=== PATIENT | male | born 1945 | race Caucasian/White ===

== ENCOUNTER 2017-12-27 14:45 | Inpatient (IN) | END 2017-12-30 17:40 | disposition home health service (06) | DRG 872 ==

== ENCOUNTER 2018-10-21 08:46 | Inpatient (IN) | payer OTHER ==
[~2018-10-21] VITALS: Ht 167.6 cm; Wt 86.9 kg
[~2018-10-21 08:46] MED LIST: AMLO5TAB4 PO; BACTRIM PO; EMPA25TA PO; PIOG15TA12 PO; RSV10T PO; SITA1TAB5 PO; TAMS-14 PO
[2018-10-21] MEDS ORDERED: SODIUM CHLORIDE 0.9% 1L BAG IV* STA (08:47)
[2018-10-21] MEDS ORDERED: KETOROLAC 15 MG INJ IV STA (08:47)
[2018-10-21] MEDS ORDERED: ACETAMINOPHEN 325 MG TAB PO ONE (09:00)
[2018-10-21] MEDS ORDERED: SITA1TAB5 PO (10:00)
[2018-10-21] MEDS ORDERED: FLUT16SP17 NASAL (10:01)
[2018-10-21] MEDS ORDERED: GABA300C16 PO ×2 (10:01)
[2018-10-21] MEDS ORDERED: AMLO5TAB4 PO (10:01)
[2018-10-21] MEDS ORDERED: COMBIG5 BOTH EYES (10:02)
[2018-10-21] MEDS ORDERED: RSV10T PO (10:02)
[2018-10-21] MEDS ORDERED: TAMS-14 PO (10:03)
[2018-10-21] MEDS ORDERED: OLOP2.5D BOTH EYES (10:03)
[2018-10-21] MEDS ORDERED: LOSA50TA14 PO (10:03)
[2018-10-21] MEDS ORDERED: PIOG15TA12 PO (10:04)
--- NOTE | 2018-10-21 10:10 | ERD ---
ER Documentation Chief Complaint Chief Complaint FEVER AND DYSURIA SINCE THIS MORNING HPI This is a 73-year-old male with a past medical history of hypertension, hyperlipidemia, diabetes, BPH, chronic kidney disease, previous episode of sepsis related to UTI last year who is presenting with similar complaints as last year. The patient's caregiver reports that he has been weaker than usual over the last 1 to 2 days. The patient also endorses suprapubic pain with dysuria, urgency and frequency. The patient is usually ambulatory, but he felt too weak to get up today, which is what prompted the caregiver to call an ambulance. The patient is felt unwell and has had a fever. The patient does not endorse any alleviating or exacerbating factors. He denies nausea or vomiting. He denies constipation or diarrhea. He denies black or bloody or tarry stools. The patient has had no headache or vision changes. The patient does not endorse neck or back pain. The patient denies lightheadedness or dizziness. The patient has had no chest pain or trouble breathing. The patient has had no focal deficits. The patient has had no weakness or numbness or tingling to the face or extremities. ROS All systems reviewed and are negative except as per history of present illness. Medications Home Meds Reported Medications Pioglitazone Hcl* (Actos*) 15 Mg Tablet, 15 MG PO DAILY, #30 TAB 10/21/18 Losartan Potassium* (Losartan Potassium*) 50 Mg Tablet, 50 MG PO DAILY, TAB 10/21/18 Tamsulosin Hcl* (Flomax*) 0.4 Mg Cap.er.24h, 0.4 MG PO DAILY, CAP 10/21/18 Olopatadine* (Pataday*) 0.2% - 2.5 Ml Drops, 1 DROP BOTH EYES DAILY, EA 10/21/18 Brimonidine/Timolol* (Combigan*) 5 Ml Drops, 1 DROP BOTH EYES BID, BOTTLE 10/21/18 Rosuvastatin Calcium* (Crestor*) 10 Mg Tablet, 10 MG PO QHS, #30 TAB 10/21/18 Fluticasone Propionate* (Fluticasone Propionate* Nasal) 50 Mcg/[place] - 16 Gm [place].susp, 1 SPRAY NASAL DAILY, #1 BOTTLE TO EACH NOSTRIL 10/21/18 Amlodipine Besylate* (Norvasc*) 5 Mg Tablet, 5 MG PO QHS, TAB 10/21/18 Gabapentin* (Gabapentin*) 300 Mg Capsule, 600 MG PO QHS, #180 CAP 10/21/18 Gabapentin* (Gabapentin*) 300 Mg Capsule, 300 MG PO QAM, #60 CAP 10/21/18 Sitagliptin Phos/Metformin HCl (Janumet 50-1,000 mg Tablet) 1 Each Tablet, 1 EACH PO BID, TAB 10/21/18 Discontinued Reported Medications Pioglitazone Hcl* (Actos*) 15 Mg Tablet, 15 MG PO DAILY, #30 TAB 12/27/17 Empagliflozin (Jardiance) 25 Mg Tablet, 25 MG PO WITH MEALS, TAB 12/27/17 Amlodipine Besylate* (Norvasc*) 5 Mg Tablet, 5 MG PO DAILY, TAB 12/27/17 Sitagliptin Phos/Metformin HCl (Janumet 50-1,000 mg Tablet) 1 Each Tablet, 2 EACH PO WITH DINNER, TAB 12/27/17 Rosuvastatin Calcium* (Crestor*) 10 Mg Tablet, 10 MG PO QHS, #30 TAB 12/27/17 Discontinued Scripts Tamsulosin Hcl* (Flomax*) 0.4 Mg Cap.er.24h, 0.8 MG PO HS for 30 Days, #60 CAP Prov:BRITTANI BELL MD 12/30/17 Trimethoprim-Sulfamethoxazole* (Bactrim*) 400-80 Mg Tab, 1 TAB PO BID for 10 Days, #20 TAB Prov:BRITTANI BELL MD 12/30/17 Allergies Allergies: Coded Allergies: No Known Allergy (Unverified , 10/21/18) PMhx/Soc History of Surgery: Yes (Right foot surgery) Anesthesia Reaction: No Hx Neurological Disorder: No Hx Respiratory Disorders: No Hx Cardiac Disorders: Yes (Hypertension, hyperlipidemia, diabetes) Hx Psychiatric Problems: No Hx Miscellaneous Medical Probl: Yes (Chronic kidney disease, BPH, recurrent UTI) Hx Alcohol Use: No Hx Substance Use: No Hx Tobacco Use: No Smoking Status: Former smoker FmHx Family History: diabetes Physical Exam Vitals Vital Signs Date Temp Pulse Resp B/P (MAP) Pulse Ox O2 O2 Flow FiO2 Time Delivery Rate 10/21/18 85 16 102/49 98 Room Air 10:30 (66) 10/21/18 100.2 93 20 125/60 96 08:52 (81) Physical Exam Const: No apparent distress, well-developed, well-nourished Head: Normocephalic, Atraumatic Eyes: Normal Conjunctiva. Extraocular movements intact. Pupils equal, round and reactive to light ENT: Normal External Ears, Nose and Mouth. Neck: Full range of motion. No meningismus. Resp: Clear to auscultation bilaterally, No wheezes, rales or rhonchi Cardio: Regular rate and rhythm. No murmurs, rubs or gallops Abd: Soft, non distended. Suprapubic abdominal tenderness, mild. No rebound or guarding. Normal bowel sounds : Mild testicular tenderness. Skin: No petechiae or rashes Back: No midline tenderness. No CVA tenderness Ext: No cyanosis, or edema Neur: Awake and alert, oriented 4. Cranial nerves intact. No facial droop. Normal strength, sensation and coordination. Psych: Normal Mood and Affect Result Diagram: 10/21/18 0900 10/21/18 09 Results 24 hrs Laboratory Tests Test 10/21/18 09:00 10/21/18 09:05 10/21/18 09:10 10/21/18 11:20 White Blood Count 26.3 10^3/ul Red Blood Count 3.74 10^6/ul Hemoglobin 10.6 g/dl Hematocrit 33.6 % Mean Corpuscular 89.8 fl Volume Mean Corpuscular 28.3 pg Hemoglobin Mean Corpuscular 31.5 g/dl Hemoglobin Concent Red Cell 13.3 % Distribution Width Platelet Count 238 10^3/UL Mean Platelet 11.6 fl Volume Immature 5.200 % Granulocytes % Neutrophils % % Segmented 73 % Neutrophils % (Manual) Band Neutrophils % 15 % (Manual) Lymphocytes % % Lymphocytes % 4 % (Manual) Monocytes % % Monocytes % 8 % (Manual) Eosinophils % % Basophils % % Nucleated Red Blood 0.0 /100WBC Cells % Immature 1.360 10^3/ul Granulocytes # Neutrophils # 10^3/ul Neutrophils # 20.2 10^3/ul (Manual) Band Neutrophils # 3.9 10^3/ul Lymphocytes 1.0 10^3/ul (Manual) Lymphocytes # 10^3/ul Monocytes # 10^3/ul Monocytes # 2.1 10^3/ul (Manual) Eosinophils # 10^3/ul Basophils # 10^3/ul Nucleated Red Blood 10^3/ul Cells # Platelet Estimate NORMAL Giant Platelets 1 % Polychromasia 1+ Poikilocytosis 2+ Anisocytosis 1+ Macrocytosis 1+ Ovalocytes 1+ Prothrombin Time 14.8 Sec Prothrombin Time 1.2 Ratio INR International 1.15 Normalized Ratio Activated 39.7 Sec Partial Thromboplas t Time Sodium Level 141 mmol/L Potassium Level 4.4 mmol/L Chloride Level 102 mmol/L Carbon Dioxide 19 mmol/L Level Anion Gap 20 Blood Urea Nitrogen 31 mg/dl Creatinine 2.50 mg/dl Est Glomerular mL/min Filtrat Rate mL/min Glucose Level 221 mg/dl Calcium Level 10.4 mg/dl Total Bilirubin 0.5 mg/dl Direct Bilirubin 0.00 mg/dl Indirect Bilirubin 0.5 mg/dl Aspartate Amino 26 IU/L Transf (AST/SGOT) Alanine 8 IU/L Aminotransferase (A LT/SGPT) Alkaline 61 IU/L Phosphatase Troponin I < 0.012 ng/ml Total Protein 8.1 g/dl Albumin 4.6 g/dl Globulin 3.50 g/dl Albumin/Globulin 1.31 Ratio POC Venous Lactate 1.9 mmol/L 1.2 mmol/L Urine Color YELLOW Urine Clarity CLOUDY Urine pH 5.0 Urine Specific 1.014 [place] Urine Ketones 1+ mg/dL Urine Nitrite NEGATIVE mg/dL Urine Bilirubin NEGATIVE mg/dL Urine Urobilinogen NEGATIVE mg/dL Urine Leukocyte 3+ Hal/ul Esterase Urine Microscopic 10 /HPF RBC Urine Microscopic > 182 /HPF WBC Urine Hemoglobin 2+ mg/dL Urine Glucose 3+ mg/dL Urine Total Protein 2+ mg/dl Current Medications Medications Dose Sig/Naima Start Time Status Last (Trade) Ordered Route PRN Stop Time Admin Dose Reason Admin Sodium 2,640 ml BOLUS OVER 2 10/21/18 DC 10/21/18 Chloride HOURS STAT 08:47 10/21/18 09:20 (NS) IV* 08:51 650 mg ONCE ONCE 10/21/18 DC 10/21/18 Acetaminophen PO 09:00 10/21/18 09:20 (Tylenol 09:01 Tab) Ketorolac 15 mg ONCE STAT 10/21/18 DC 10/21/18 Tromethamine IV 08:47 10/21/18 09:20 (Toradol) 08:51 150 ml @ ONCE ONCE 10/21/18 10/21/18 Levofloxacin/ 100 mls/hr IVPB 11:00 10/21/18 11:04 Dextrose 12:29 Procedures/MDM MDM The patient's presentation warrants further investigation. Previous medical records, if available, were reviewed. LABS The patient's laboratory testing was obtained and reviewed. No emergent treatment was required unless described below. CBC: Significant leukocytosis, concerning for an infection. Normocytic anemia, not emergent. Normal platelet count. Chemistry: Elevated BUN and creatinine above his baseline, indicating acute on chronic kidney disease. Mild hyperglycemia with a mild anion gap metabolic acidosis, though low clinical suspicion for DKA. No E/o severe alkalosis or liver disease. PT/INR: No E/o significant coagulopathy Lactate: No E/o severe sepsis Troponin: No E/o acute ischemia Urine: E/o acute infection with hematuria EKG EKG read by me: Rate/Rhythm: Regular rate and rhythm at a rate of 95 bpm Intervals: Normal [place]: Left shifted Impression: No evidence of acute ischemia or arrhythmia IMAGING Imaging and Radiology interpretation reviewed. CXR FINDINGS: The trachea is midline. The cardiac silhouette is enlarged and pulmonary vascularity are within normal limits. The lungs are clear. There are bilateral chronic lung changes. The costophrenic angles are sharp. There is atherosclerotic calcification of the aortic knob. IMPRESSION: 1. Cardiomegaly and atherosclerotic disease. 2. Bilateral chronic lung changes. No evidence of acute cardiopulmonary disease. Electronically viewed and signed by Physician Stef on 10/21/2018 10:05 US Scrotum FINDINGS: Bilateral testicular echogenicity is symmetric. Right testis measures 3.5 x 2.8 x 2.7 cm. Left testis measures 3.8 x 3.3 x 3.8 cm. Normal vascular sravani w was readily detected within both testes. Normal vascular waveforms were sampled from both testes. Bilateral epididymides are enlarged and hyperemic. There is a 1 cm left epididymal head cyst. There are small bilateral hydroceles with internal echoes on the left No varicocele is seen. IMPRESSION: 1. Bilateral epididymitis. Consider follow-up sonogram to document resolution. 2. Unremarkable testes. 3. Left epididymal head cyst. 4. Small bilateral hydroceles, containing debris on the left. Electronically viewed and signed by Physician Edenilson on 10/21/2018 11:06 TREATMENT/DISPOSITION The patient presents for a fever, generalized weakness and dysuria. The patient has a leukocytosis and is febrile, meeting criteria for systemic inflammatory response with a source. I am concerned about sepsis and a septic work-up was completed. The patient's lactic acid is normal, but his creatinine is elevated today. The patient does have a history of chronic kidney disease, but his b aseline is typically less than 2. His creatinine is greater than 2 today. He does meet criteria for severe sepsis. The patient does also have evidence of epididymitis. This may be evaluated further in the hospital was well. SEPSIS NOTE SIRS Criteria: Fever, leukocytosis Infectious source: UTI End organ damage indicated by: Creatinine greater than 2 SEPSIS MANAGEMENT Time to recognize sepsis: Upon arrival. Time to recognize severe sepsis: 0915 Time to recognize septic shock: No septic shock at this time. 3 HOUR BUNDLE Blood cultures x 2 before abx: Yes 30 ml/kg NS bolus completed Initial lactate 1.9 Repeat lactate Pending SEPTIC SHOCK ASSESSMENT: NO lactic acid > 4.0 NO persistent hypotension (SBP < 90 or 40 mmHg drop, MAP < 65) despite 30 L/kg IV fluid bolus CRITICAL CARE NOTE Time: 35 minutes excluding all billable procedures. Treatments/Evaluations: The patient was at risk of hemodynamic compromise. Timing of critical care involved close serial monitoring, evaluation of the patient's medical record including previous records & current laboratory/imaging studies, potential interventions for prevention of hemodynamic/ cardiopulmonary/ neurologic compromise, maintaining tight fluid balance, and any discussions with the family and/or consultants regarding the patient's status and prognosis. ADMISSION The patient will be admitted to panel in accordance with the patient's insurance. The patient was accepted by Dr. Paniagua at 11:18AM. Disclaimer: Inadvertent spelling and grammatical errors are likely due to EHR/dictation software use and do not reflect on the overall quality of patient care. Note that the electronic time recorded on this note does not necessarily reflect the actual time of the patient encounter. Departure Diagnosis: Primary Impression: Severe sepsis Additional Impressions: UTI (urinary tract infection) Urinary tract infection type: acute cystitis Hematuria presence: without hematuria Qualified Codes: N30.00 - Acute cystitis without hematuria Generalized weakness Leukocytosis Leukocytosis type: unspecified Qualified Codes: D72.829 - Elevated white blood cell count, unspecified Fever Fever type: unspecified Qualified Codes: R50.9 - Fever, unspecified Czdwz-if-birpvek kidney injury Acute renal failure type: unspecified Chronic kidney disease stage: unspecified stage Qualified Codes: N17.9 - Acute kidney failure, unspecified; N18.9 - Chronic kidney disease, unspecified High anion gap metabolic acidosis Hyperglycemia Epididymitis Normocytic anemia Condition: Serious EDGAR GUZMAN MD October 21, 2018 10:09
[2018-10-21] MEDS ORDERED: LEVOFLOXACIN 750MG/D5W (PMX) 150 ML IVPB ONE (11:00)
[2018-10-21] MEDS ORDERED: ACETAMINOPHEN 325 MG TAB PO PRN ×2 (12:00→15:00)
[2018-10-21] MEDS ORDERED: ONDANSETRON 4 MG INJ IV PRN (12:00)
[2018-10-21 13:52] VITALS: Ht 167.6 cm; Wt 86.9 kg
[2018-10-21 14:00] VITALS: BP 156/70; PULSE 82; RESP 18
[2018-10-21] MEDS ORDERED: HYDROCODONE/APAP (5/325) TAB PO PRN (15:00)
[2018-10-21] MEDS ORDERED: NACL 0.9% 3 ML SYG IV SCH (15:00)
--- NOTE | 2018-10-21 15:08 | HP ---
Date/Time of Note Date/Time of Note DATE: 10/21/18 TIME: 14:45 Assessment/Plan VTE Prophylaxis Pharmacological prophylaxis: NA/contraindicated Pharm contraindication: low risk/ambulating Lines/Catheters IV Catheter Type (from Nrsg): Saline Lock Assessment/Plan Assessment/Plan 73 yo man history of DM2, HTN, BPH, CKD presents with epidydimitis and (likely chronic) hydrocele. #Epidydimitis - PO levofloxacin - Pain control with tylenol and norco. - Continue ambulation. - Outpatient followup with Dr. Wilkinson. #Diabetes - Continue home meds #HTN - Continue home meds. #CKD - Cr 12/2017 was 1.65. - Hydration, reassess in AM to ensure downtrending. - No urinary obstructive symptoms. DVT: SCDs GI: None Result Diagram: 10/21/18 0900 10/21/18 0900 HPI/ROS Admit Date/Time Admit Date/Time October 21, 2018 at 11:32 Hx of Present Illness Mr. Joy is man with history of HTN, HLD, DM2, BPH, and CKD who presents with testicular pain. Symptoms have been gradually progressive for about two weeks. Reports testicular pain, aching, positional, worse when sitting on them or applying any pressure. He denies dysuria, foul smelling urine, subjective fever or chills at home. He had an appointment with his urologist, Dr. Wilkinson at [facility] yesterday; but his line worker could not bring him to the appointment. He lives at home with a line worker, has a hospital bed (?), and ambulates with a walker. The morning of admission he woke up and tried to stand but doing so caused severe testicular pain. So he had his line worker call him an ambulance to the ED. In the ED he had elevated temp to 100.2. Otherwise vitals unremarkable. WBC elevated to 26.3 and Cr was 2.5 with very fluctuating baseline. Otherwise labs unremarkable. Testicular US shows bilateral hydrocele and bilateral epididymitis. ROS Patient denies subjective fever, chills, night sweats, weight loss, headache, dizziness, chest pain/pressure/palpitations, dyspnea, cough, nausea, vomiting, abdominal pain, constipation. Had diarrhea yesterday, now resolved. Denies dysuria, hematuria, foul-smelling urine, urinary frequency. PMH/Family/Social Past Medical History HTN DM2 HLD BPH CKD Medications Current Medications Ondansetron HCl (Zofran Inj) 4 mg BRIDGE ORDER PRN IV NAUSEA/VOMITING; Start 10/21/18 at 12:00; Stop 10/22/18 at 11:59 Acetaminophen (Tylenol Tab) 650 mg ER BRIDGE PRN PO .MILD PAIN 1-3 OR TEMP; Start 10/21/18 at 12:00; Stop 10/22/18 at 11:59 IV Flush (NS 3 ml) 3 ml PER PROTOCOL IV ; Start 10/21/18 at 15:00; Status UNV Acetaminophen (Tylenol Tab) 650 mg Q6H PRN PO .PAIN 1-3 OR TEMP; Start 10/21/18 at 15:00; Status UNV Levofloxacin (Levaquin) 500 mg DAILY@06 PO ; Start 10/22/18 at 06:00; Status UNV Coded Allergies: No Known Allergy (Unverified , 10/21/18) Past Surgical History L foot bunion surgery. R foot surgery prostate surgery 2 months ago. Social History Lives at home with line worker, ambulates with walker. Alcohol Use: sober (quit July 2017) Smoking Status: Former smoker (quit 12 yrs ago) Drug Use: none Exam/Review of Systems Vital Signs Vitals Vital Signs Date Temp Pulse Resp B/P (MAP) Pulse Ox O2 O2 Flow FiO2 Time Delivery Rate 10/21/18 77 18 131/63 97 Room Air 12:35 (85) 10/21/18 99.0 11:30 Exam Exam Gen: Well appearing overweight man in no acute distress, supine in bed. Eyes: PERRL no icterus HEENT: Moist mucous membranes, clear oropharynx Neck: Very wide circumference. No lymphadenopathy Card: Regular rate and rhythm, no murmurs Pulm: Clear to auscultation bilaterally Abd: Soft, nontender, nondistended. Ext: No cyanosis/clubbing/edema. Good peripheral pulses. : L testicle enlarged, very tender, swollen palpable epididymis. R testicle normal sized, not very tender. No scrotal induration or redness. Normal uncircumcised phallus. MOO FORTE MD October 21, 2018 14:56
[2018-10-21] MEDS: ACCU-CHEK XX SCH ×2 (17:23→20:30)
[2018-10-21 20:00] VITALS: BP 144/70; PULSE 78; RESP 19
[2018-10-21] MEDS: GABAPENTIN 300 MG CAP PO SCH (20:26)
[2018-10-21] MEDS: ATORVASTATIN 40 MG TAB PO SCH (20:26)
[2018-10-21] MEDS: BRIMONIDINE 0.2%-TIMOLOL 0.5% 5ML OPH BOTH EYES SCH (20:27)
[2018-10-21] MEDS: AMLODIPINE 5 MG TAB PO SCH (20:27)
[2018-10-21] MEDS ORDERED: NON-FORMULARY/PATIENT OWN MED (Sitagliptin Phos/Metformin HCl (Janumet 50-1,000 mg Tablet) PO SCH (21:00)
[2018-10-21] MEDS ORDERED: NON-FORMULARY/PATIENT OWN MED (Rosuvastatin Calcium* (Crestor*) 10 MG) PO SCH (21:00)
[2018-10-21] MEDS ORDERED: ACCU-CHEK XX ONE (21:30)
[2018-10-21] MEDS ORDERED: GLUCOSE GEL 15 GRAM TUBE BUCCAL PRN (22:00)
[2018-10-21] MEDS ORDERED: DEXTROSE 50% 50 ML SYRINGE IV PRN ×2 (22:00)
[2018-10-21] MEDS ORDERED: GLUCAGON 1 MG INJ IM PRN (22:00)
[2018-10-21] MEDS ORDERED: GLUCOSE GEL 15 GRAM TUBE PO PRN ×2 (22:00)
[2018-10-21] MEDS ORDERED: INSULIN ASPART [NOVOLOG] 3 ML PEN SC ONE (22:30)
[2018-10-22 02:00] VITALS: BP 127/60; PULSE 63; RESP 19
[2018-10-22 08:00] VITALS: BP 130/59; PULSE 72; RESP 18
[2018-10-22] MEDS: ACCU-CHEK XX SCH ×4 (08:30→20:53)
[2018-10-22] MEDS: TAMSULOSIN (SR) 0.4 MG CAP PO SCH (08:40)
[2018-10-22] MEDS: LOSARTAN 50 MG TAB PO SCH (08:41)
[2018-10-22] MEDS: OLOPATADINE 0.2% (ONCE A DAY) OPHTH DROP 2.5 ML BOTH EYES SCH (08:41)
[2018-10-22] MEDS: BRIMONIDINE 0.2%-TIMOLOL 0.5% 5ML OPH BOTH EYES SCH ×2 (08:41→20:45)
[2018-10-22] MEDS: GABAPENTIN 300 MG CAP PO SCH ×2 (08:41→20:46)
[2018-10-22] MEDS: FLUTICASONE 0.05% 16 GM NAS SPRAY NASAL SCH (08:42)
[2018-10-22] MEDS: INSULIN ASPART [NOVOLOG] 3 ML PEN SC SCH ×6 (08:48→20:52)
[2018-10-22] MEDS: PIOGLITAZONE 15 MG TAB PO SCH (09:45)
--- NOTE | 2018-10-22 14:22 | PN ---
Date/Time of Note Date/Time of Note DATE: 10/22/18 TIME: 14:20 Assessment/Plan VTE Prophylaxis Risk score (from Nsg)>0 risk: 6 SCD applied (from Nsg): Yes Pharmacological prophylaxis: NA/contraindicated Pharm contraindication: low risk/ambulating Lines/Catheters IV Catheter Type (from Nrsg): Saline Lock Assessment/Plan Assessment/Plan 73 yo man history of DM2, HTN, BPH, CKD presents with epidydimitis and (likely chronic) hydrocele. #Epidydimitis - PO levofloxacin - Pain control with tylenol and norco. - Continue ambulation. - Outpatient followup with urologist Dr. Wilkinson. #Diabetes - Continue home meds #HTN - Continue home meds. #CKD - Cr 12/2017 was 1.65. - Cr now downtrending after hydration. - No urinary obstructive symptoms. DVT: SCDs GI: None Dispo: Patient appears medically stable for discharge on levofloxacin. However he refused, saying his charge account identification clerk cannot pick him up until tomorrow. Will watch WBCs and see culture results. Result Diagram: 10/22/18 0545 10/22/18 0545 Subjective 24 Hr Interval Summary Free Text/Dictation No acute overnight events. Pain now well controlled. Patient is up and ambulatory. Good appetite. Overall feeling much better. Exam/Review of Systems Exam Vitals Vital Signs Date Temp Pulse Resp B/P (MAP) Pulse Ox O2 O2 Flow FiO2 Time Delivery Rate 10/22/18 98.2 72 18 130/59 98 Room Air 08:00 (82) Intake and Output 10/21/18 10/21/18 10/22/18 1515:00 23:00 07:00 IntakeIntake Total 2640 ml 520 ml 600 ml OutputOutput Total 300 ml BalanceBalance 2640 ml 520 ml 300 ml Exam Gen: Well appearing overweight man in no acute distress, supine in bed. Eyes: PERRL no icterus HEENT: Moist mucous membranes, clear oropharynx Neck: Very wide circumference. No lymphadenopathy Card: Regular rate and rhythm, no murmurs Pulm: Clear to auscultation bilaterally Abd: Soft, nontender, nondistended. Ext: No cyanosis/clubbing/edema. Good peripheral pulses. : L testicle enlarged, very tender, swollen palpable epididymis. R testicle normal sized, not very tender. L sided scrotal redness and induration. Normal uncircumcised phallus. Results Results 24hrs Laboratory Tests Test 10/21/18 17:01 10/21/18 20:33 10/21/18 22:05 10/22/18 00:25 Bedside Glucose 294 H 326 H 267 H 264 H Test 10/22/18 01:59 10/22/18 05:45 10/22/18 08:10 10/22/18 12:01 Bedside Glucose 246 H 231 H 249 H White Blood Count 23.6 H Red Blood Count 3.46 L Hemoglobin 9.8 L Hematocrit 30.6 L Mean Corpuscular Volume 88.4 Mean Corpuscular 28.3 L Hemoglobin Mean Corpuscular 32.0 Hemoglobin Concent Red Cell Distribution 13.6 Width Platelet Count 228 Mean Platelet Volume 11.6 H Immature Granulocytes % 1.100 H Neutrophils % 88.0 H Segmented Neutrophils 64 % (Manual) Band Neutrophils % 24 H (Manual) Lymphocytes % 5.0 L Lymphocytes % (Manual) 7 L Monocytes % 5.6 Monocytes % (Manual) 5 Eosinophils % 0.1 Basophils % 0.2 Nucleated Red Blood 0.0 Cells % Immature Granulocytes # 0.260 H Neutrophils # 20.8 H Neutrophils # (Manual) 16.4 H Band Neutrophils # 5.6 H Lymphocytes (Manual) 1.6 Lymphocytes # 1.2 Monocytes # 1.3 H Monocytes # (Manual) 1.1 H Eosinophils # 0.0 Basophils # 0.0 Nucleated Red Blood 0.0 Cells # Platelet Estimate NORMAL Giant Platelets 3 H Platelet Morphology @See below Comment Polychromasia 1+ Poikilocytosis 2+ Anisocytosis 1+ Ovalocytes 1+ Sodium Level 141 Potassium Level 4.3 Chloride Level 106 Carbon Dioxide Level 23 Anion Gap 12 # Blood Urea Nitrogen 41 H Creatinine 2.13 H Est Glomerular Filtrat Rate mL/min Glucose Level 223 H Hemoglobin A1c 7.5 H Calcium Level 9.2 Phosphorus Level 4.1 Magnesium Level 2.0 Total Bilirubin 0.2 Direct Bilirubin 0.00 Indirect Bilirubin 0.2 Aspartate Amino 27 Transf (AST/SGOT) Alanine 18 Aminotransferase (ALT/SG PT) Alkaline Phosphatase 74 Total Protein 6.8 # Albumin 3.6 # Globulin 3.20 Albumin/Globulin Ratio 1.12 Medications Medication Current Medications IV Flush (NS 3 ml) 3 ml PER PROTOCOL IV ; Start 10/21/18 at 15:00 Acetaminophen (Tylenol Tab) 650 mg Q6H PRN PO .PAIN 1-3 OR TEMP; Start 10/21/18 at 15:00 Levofloxacin (Levaquin) 500 mg Q2D@0600 PO ; Start 10/23/18 at 06:00 Amlodipine Besylate (Norvasc) 5 mg QHS PO Last administered on 10/21/18 20:27; Admin Dose 5 MG; Start 10/21/18 at 21:00 Brimonidine/ Timolol (Combigan Oph) 1 drop BID BOTH EYES Last administered on 10/22/18 08:41; Admin Dose 1 DROP; Start 10/21/18 at 21:00 Fluticasone Propionate (Flonase 0.05% Nasal) 1 spray DAILY NASAL Last administered on 10/22/18 08:42; Admin Dose 1 SPRAY; Start 10/22/18 at 09:00 Gabapentin (Neurontin) 300 mg QAM PO Last administered on 10/22/18 08:41; Admin Dose 300 MG; Start 10/22/18 at 09:00 Gabapentin (Neurontin) 600 mg QHS PO Last administered on 10/21/18 20:26; Admin Dose 600 MG; Start 10/21/18 at 21:00 Losartan Potassium (Cozaar) 50 mg DAILY PO Last administered on 10/22/18 08:41; Admin Dose 50 MG; Start 10/22/18 at 09:00 Olopatadine HCl (Pataday) 1 drop DAILY BOTH EYES Last administered on 10/22/18 08:41; Admin Dose 1 DROP; Start 10/22/18 at 09:00 Pioglitazone HCl (Actos) 15 mg DAILY PO Last administered on 10/22/18 09:45; Admin Dose 15 MG; Start 10/22/18 at 09:00 Tamsulosin HCl (Flomax) 0.4 mg DAILY PO Last administered on 10/22/18 08:40; Admin Dose 0.4 MG; Start 10/22/18 at 09:00 Diagnostic Test (Pha) (Accu-Chek) 1 ea AC MEALS AND BEDTIME XX Last administered on 10/22/18 12:09; Admin Dose 1 EA; Start 10/21/18 at 17:35 Acetaminophen/ Hydrocodone Bitart ([place] (5/325)) 1 tab Q4H PRN PO BREAKTHROUGH PAIN; Start 10/21/18 at 15:00 Atorvastatin Calcium (Lipitor) 40 mg DAILY@21 PO Last administered on 10/21/18at 20:26; Admin Dose 40 MG; Start 10/21/18 at 21:00 Insulin Aspart (Novolog Insulin Pen) NOVOLOG *MODERATE* ALGORITHM WITH MEALS BEDTIME SC Last administered on 10/22/18at 12:08; Admin Dose 6 UNIT; Start 10/22/18 at 08:00 Miscellaneous Information 1 ea NOTE XX ; Start 10/21/18 at 22:00 Glucose (Glutose) 15 gm Q15M PRN PO DECREASED GLUCOSE; Start 10/21/18 at 22:00 Glucose (Glutose) 22.5 gm Q15M PRN PO DECREASED GLUCOSE; Start 10/21/18 at 22:00 Dextrose (D50w Syringe) 25 ml Q15M PRN IV DECREASED GLUCOSE; Start 10/21/18 at 22:00 Dextrose (D50w Syringe) 50 ml Q15M PRN IV DECREASED GLUCOSE; Start 10/21/18 at 22:00 Glucagon (Glucagen) 1 mg Q15M PRN IM DECREASED GLUCOSE; Start 10/21/18 at 22:00 Glucose (Glutose) 15 gm Q15M PRN BUCCAL DECREASED GLUCOSE; Start 10/21/18 at 22:00 Insulin Aspart (Novolog Insulin Pen) 6 unit WITH MEALS SC Last administered on 10/22/18at 12:09; Admin Dose 6 UNIT; Start 10/22/18 at 12:00 MOO FORTE MD October 22, 2018 14:22
[2018-10-22 14:28] VITALS: BP 103/59; PULSE 71; RESP 18
[2018-10-22 20:00] VITALS: BP 112/58; PULSE 67; RESP 17
[2018-10-22] MEDS: ATORVASTATIN 40 MG TAB PO SCH (20:46)
[2018-10-22] MEDS: AMLODIPINE 5 MG TAB PO SCH (20:47)
[2018-10-23 02:00] VITALS: BP 127/60; PULSE 67; RESP 18
[2018-10-23] MEDS ORDERED: LEVOFLOXACIN 500 MG TAB PO SCH (06:00)
[2018-10-23] MEDS: INSULIN ASPART [NOVOLOG] 3 ML PEN SC SCH ×7 (08:00→21:01)
[2018-10-23] MEDS: ACCU-CHEK XX SCH ×4 (08:00→21:00)
[2018-10-23 08:02] VITALS: BP 148/68; PULSE 71; RESP 20
[2018-10-23] MEDS: OLOPATADINE 0.2% (ONCE A DAY) OPHTH DROP 2.5 ML BOTH EYES SCH (08:53)
[2018-10-23] MEDS: BRIMONIDINE 0.2%-TIMOLOL 0.5% 5ML OPH BOTH EYES SCH ×2 (08:54→20:52)
[2018-10-23] MEDS: GABAPENTIN 300 MG CAP PO SCH ×2 (08:54→20:51)
[2018-10-23] MEDS: TAMSULOSIN (SR) 0.4 MG CAP PO SCH (08:54)
[2018-10-23] MEDS: LOSARTAN 50 MG TAB PO SCH (08:56)
[2018-10-23] MEDS: FLUTICASONE 0.05% 16 GM NAS SPRAY NASAL SCH ×2 (08:56→20:52)
[2018-10-23] MEDS: PIOGLITAZONE 15 MG TAB PO SCH (08:57)
--- NOTE | 2018-10-23 17:55 | PN ---
Date/Time of Note Date/Time of Note DATE: 10/23/18 TIME: 17:50 Assessment/Plan VTE Prophylaxis Risk score (from Nsg)>0 risk: 4 SCD applied (from Nsg): Yes Pharmacological prophylaxis: other Lines/Catheters IV Catheter Type (from Nrsg): [place] Assessment/Plan Hospital Course S: Patient had no fevers, white blood cell count still significantly elevated as well as having abnormal kidney function. O: VS -see below PE: Gen: Conversive, no acute distress, eating food at bedside Eyes: PERRL no icterus HEENT: Moist mucous membranes, clear oropharynx Neck: Very wide circumference. No lymphadenopathy Card: Regular rate and rhythm, no murmurs Pulm: Clear to auscultation bilaterally Abd: Soft, nontender, nondistended. Ext: No cyanosis/clubbing/edema. Good peripheral pulses. : L testicle enlarged, very tender, swollen palpable epididymis. R testicle normal sized, not very tender. L sided scrotal redness and induration. Assessment/Plan: 73 yo man history of DM2, HTN, BPH, CKD presents with epidydimitis and (likely chronic) hydrocele. #Epidydimitis-slowly improving but still significant white blood cell count elevation. Still some swelling as well. Urine culture positive for Pseudomonas -Discontinue PO levofloxacin, switch to IV Zosyn, continue elevation - Pain control with tylenol and norco. - Continue ambulation. -We will go ahead and obtain urology consult #Diabetes: Sugars in the mid 200 range. A1c is 7.5 -Continue sliding scale, add Lantus, increase short acting insulin as well -For now hold home diabetic p.o. medications given her renal insufficiency #HTN: Stable - Continue home meds. #CKD- Cr 12/2017 was 1.65. Creatinine today 1.95 -Start IV fluids and monitor BUN/creatinine levels -Hold ARB DVT: SCDs GI: None Result Diagram: 10/23/18 0459 10/23/18 0459 Results 24hrs Laboratory Tests Test 10/22/18 20:49 10/23/18 03:23 10/23/18 04:59 10/23/18 08:18 Bedside Glucose 208 250 H 266 H White Blood Count 20.4 H Red Blood Count 3.32 L Hemoglobin 9.4 L Hematocrit 29.4 L Mean Corpuscular Volume 88.6 Mean Corpuscular 28.3 L Hemoglobin Mean Corpuscular 32.0 Hemoglobin Concent Red Cell Distribution 13.5 Width Platelet Count 244 Mean Platelet Volume 11.7 H Immature Granulocytes % 0.800 H Neutrophils % 87.5 H Lymphocytes % 7.3 L Monocytes % 3.5 Eosinophils % 0.6 Basophils % 0.3 Nucleated Red Blood 0.0 Cells % Immature Granulocytes # 0.160 H Neutrophils # 17.8 H Lymphocytes # 1.5 Monocytes # 0.7 Eosinophils # 0.1 Basophils # 0.1 Nucleated Red Blood 0.0 Cells # Sodium Level 139 Potassium Level 3.9 Chloride Level 104 Carbon Dioxide Level 23 Anion Gap 12 Blood Urea Nitrogen 49 H Creatinine 1.95 H Est Glomerular Filtrat Rate mL/min Glucose Level 226 H Calcium Level 9.4 Phosphorus Level 3.8 Magnesium Level 2.2 Test 10/23/18 12:12 10/23/18 17:27 Bedside Glucose 250 H 187 Exam/Review of Systems Exam Vitals Vital Signs Date Temp Pulse Resp B/P (MAP) Pulse Ox O2 O2 Flow FiO2 Time Delivery Rate 10/23/18 98.0 71 20 148/68 97 Room Air 08:02 (94) Intake and Output 10/22/18 10/22/18 10/23/18 1515:00 23:00 07:00 IntakeIntake Total 1100 ml 720 ml 600 ml OutputOutput Total 401 ml 401 ml BalanceBalance 699 ml 319 ml 600 ml Results Results 24hrs Laboratory Tests Test 10/22/18 20:49 10/23/18 03:23 10/23/18 04:59 10/23/18 08:18 Bedside Glucose 208 250 H 266 H White Blood Count 20.4 H Red Blood Count 3.32 L Hemoglobin 9.4 L Hematocrit 29.4 L Mean Corpuscular Volume 88.6 Mean Corpuscular 28.3 L Hemoglobin Mean Corpuscular 32.0 Hemoglobin Concent Red Cell Distribution 13.5 Width Platelet Count 244 Mean Platelet Volume 11.7 H Immature Granulocytes % 0.800 H Neutrophils % 87.5 H Lymphocytes % 7.3 L Monocytes % 3.5 Eosinophils % 0.6 Basophils % 0.3 Nucleated Red Blood 0.0 Cells % Immature Granulocytes # 0.160 H Neutrophils # 17.8 H Lymphocytes # 1.5 Monocytes # 0.7 Eosinophils # 0.1 Basophils # 0.1 Nucleated Red Blood 0.0 Cells # Sodium Level 139 Potassium Level 3.9 Chloride Level 104 Carbon Dioxide Level 23 Anion Gap 12 Blood Urea Nitrogen 49 H Creatinine 1.95 H Est Glomerular Filtrat Rate mL/min Glucose Level 226 H Calcium Level 9.4 Phosphorus Level 3.8 Magnesium Level 2.2 Test 10/23/18 12:12 10/23/18 17:27 Bedside Glucose 250 H 187 Medications Medication Current Medications IV Flush (NS 3 ml) 3 ml PER PROTOCOL IV ; Start 10/21/18 at 15:00 Acetaminophen (Tylenol Tab) 650 mg Q6H PRN PO .PAIN 1-3 OR TEMP; Start 10/21/18 at 15:00 Amlodipine Besylate (Norvasc) 5 mg QHS PO Last administered on 10/22/18 20:47; Admin Dose 5 MG; Start 10/21/18 at 21:00 Brimonidine/ Timolol (Combigan Oph) 1 drop BID BOTH EYES Last administered on 10/23/18 08:54; Admin Dose 1 DROP; Start 10/21/18 at 21:00 Fluticasone Propionate (Flonase 0.05% Nasal) 1 spray DAILY NASAL Last ad ministered on 10/23/18 08:56; Admin Dose 1 SPRAY; Start 10/22/18 at 09:00 Gabapentin (Neurontin) 300 mg QAM PO Last administered on 10/23/18 08:54; Admin Dose 300 MG; Start 10/22/18 at 09:00 Gabapentin (Neurontin) 600 mg QHS PO Last administered on 10/22/18 20:46; Admin Dose 600 MG; Start 10/21/18 at 21:00 Olopatadine HCl (Pataday) 1 drop DAILY BOTH EYES Last administered on 10/23/18 08:53; Admin Dose 1 DROP; Start 10/22/18 at 09:00 Tamsulosin HCl (Flomax) 0.4 mg DAILY PO Last administered on 10/23/18 08:54; Admin Dose 0.4 MG; Start 10/22/18 at 09:00 Diagnostic Test (Pha) (Accu-Chek) 1 ea AC MEALS AND BEDTIME XX Last administered on 10/23/18 17:42; Admin Dose 1 EA; Start 10/21/18 at 17:35 Acetaminophen/ Hydrocodone Bitart ([place] (5/325)) 1 tab Q4H PRN PO BREAKTHROUGH PAIN; Start 10/21/18 at 15:00 Atorvastatin Calcium (Lipitor) 40 mg DAILY@21 PO Last administered on 10/22/18at 20:46; Admin Dose 40 MG; Start 10/21/18 at 21:00 Insulin Aspart (Novolog Insulin Pen) NOVOLOG *MODERATE* ALGORITHM WITH MEALS BEDTIME SC Last administered on 10/23/18at 17:47; Admin Dose 4 UNIT; Start 10/22/18 at 08:00 Miscellaneous Information 1 ea NOTE XX ; Start 10/21/18 at 22:00 Glucose (Glutose) 15 gm Q15M PRN PO DECREASED GLUCOSE; Start 10/21/18 at 22:00 Glucose (Glutose) 22.5 gm Q15M PRN PO DECREASED GLUCOSE; Start 10/21/18 at 22:00 Dextrose (D50w Syringe) 25 ml Q15M PRN IV DECREASED GLUCOSE; Start 10/21/18 at 22:00 Dextrose (D50w Syringe) 50 ml Q15M PRN IV DECREASED GLUCOSE; Start 10/21/18 at 22:00 Glucagon (Glucagen) 1 mg Q15M PRN IM DECREASED GLUCOSE; Start 10/21/18 at 22:00 Glucose (Glutose) 15 gm Q15M PRN BUCCAL DECREASED GLUCOSE; Start 10/21/18 at 22:00 Piperacillin Sod/ Tazobactam Sod 100 ml @ 200 mls/hr Q8 IVPB ; Start 10/23/18 at 18:00; Status UNV Sodium Chloride 1,000 ml @ 100 mls/hr Q10H IV ; Start 10/23/18 at 18:00; Status UNV Miscellaneous Information (* Miscellaneous Pharmacy Order) Discontinue current oral sulfonylur... ONCE ONCE XX ; Start 10/23/18 at 18:00; Stop 10/23/18 at 18:01; Status UNV Diagnostic Test (Pha) (Accu-Chek) 1 ea 02 XX ; Start 10/24/18 at 02:00; Status U NV Miscellaneous Information (* Miscellaneous Pharmacy Order) HYPOGLYCEMIA PROTOCOL w... ONCE ONCE XX ; Start 10/23/18 at 18:00; Stop 10/23/18 at 18:01; Status UNV Miscellaneous Information (* Miscellaneous Pharmacy Order) Discontinue all previ... ONCE ONCE XX ; Start 10/23/18 at 18:00; Stop 10/23/18 at 18:01; Status UNV Miscellaneous Information (* Miscellaneous Pharmacy Order) Discontinue all pr idalia... ONCE ONCE XX ; Start 10/23/18 at 18:00; Stop 10/23/18 at 18:01; Status UNV Insulin Aspart (Novolog Insulin Pen) 8 unit WITH MEALS SC ; Start 10/24/18 at 07:35; Status UNV Insulin Glargine (Lantus) 20 units DAILY@2000 SC ; Start 10/23/18 at 20:00; Status UNV SHEILA CHIN October 23, 2018 17:55
[2018-10-23] MEDS: PIPER-TAZO 3.375 GM IV (PMX) 100 ML IVPB SCH (18:55)
[2018-10-23] MEDS: SOD CHLORIDE 0.9% 1,000 ML IV SCH (18:55)
[2018-10-23 19:40] VITALS: BP 132/61; PULSE 62; RESP 20
[2018-10-23] MEDS ORDERED: INSULIN GLARGINE [LANTus] (100 UNITS/ML) SYG SC SCH ×2 (20:00)
[2018-10-23] MEDS: AMLODIPINE 5 MG TAB PO SCH (20:51)
[2018-10-23] MEDS: ATORVASTATIN 40 MG TAB PO SCH (20:51)
[2018-10-24] MEDS: ACCU-CHEK XX SCH ×5 (02:00→20:54)
[2018-10-24] MEDS: SOD CHLORIDE 0.9% 1,000 ML IV SCH ×4 (03:55→17:26)
[2018-10-24 04:08] VITALS: BP 118/59; PULSE 61; RESP 16
[2018-10-24] MEDS: PIPER-TAZO 3.375 GM IV (PMX) 100 ML IVPB SCH ×3 (06:09→23:28)
[2018-10-24] MEDS: INSULIN ASPART [NOVOLOG] 3 ML PEN SC SCH ×7 (08:12→20:53)
[2018-10-24] MEDS: TAMSULOSIN (SR) 0.4 MG CAP PO SCH (08:13)
[2018-10-24] MEDS: BRIMONIDINE 0.2%-TIMOLOL 0.5% 5ML OPH BOTH EYES SCH ×2 (08:13→20:51)
[2018-10-24] MEDS: GABAPENTIN 300 MG CAP PO SCH ×2 (08:13→20:51)
[2018-10-24] MEDS: OLOPATADINE 0.2% (ONCE A DAY) OPHTH DROP 2.5 ML BOTH EYES SCH (08:13)
[2018-10-24] MEDS: FLUTICASONE 0.05% 16 GM NAS SPRAY NASAL SCH ×2 (08:14→20:51)
[2018-10-24 08:21] VITALS: BP 129/62; PULSE 60; RESP 18
--- NOTE | 2018-10-24 08:22 | CONS ---
DATE OF ADMISSION: 10/21/2018 DATE OF CONSULTATION: 10/24/2018 HISTORY OF PRESENT ILLNESS: This is a 73-year-old male who was admitted with bilateral epididymitis. The patient was initially placed on Levaquin, but due to persistence of pain, this was changed to p iperacillin. Yesterday, the patient states he has a week history of bilateral orchialgia. A scrotal ultrasound has been obtained here on his hospitalization, which demonstrates bilateral epididymitis. There is no evidence of an abscess formation. The patient states he is voiding well. He has a his tory of diabetes. PHYSICAL EXAMINATION: LUNGS: Good breath sounds bilaterally. HEART: Regular rate and rhythm. ABDOMEN: Soft, nondistended, nontender. No palpable muscle. Flank, no CVA tenderness or masses. GENITALIA: Normal shaft penis, normal scrotum. No noted erythema or skin breakdown. There is marke d induration and inflammation of the left testicle and epididymis with a secondary hydrocele. Minima l tenderness is appreciated. Right testicle is noted for minimal induration of the epididymis. EXTREMITIES: There is no noted fluctuation and testicle is within normal limits. LABORATORY DATA: White blood count yesterday 20,000. Prior to this is 26,000. Blood culture x2 neg ative, urine culture pseudomonas, hemoglobin 9.4. IMPRESSION: Epididymitis. PLAN: Continue piperacillin, follow up labs, we will follow. Dictated By: YARED HASSAN MD EGR/NTS Conf#: [id number] DID#: [id number] CC: MOO FORTE MD; SHEILA CHIN; YARED HASSAN MD;*[facility]*
[2018-10-24 14:29] VITALS: BP 128/70; PULSE 67; RESP 18
--- NOTE | 2018-10-24 14:35 | PN ---
Date/Time of Note Date/Time of Note DATE: 10/24/18 TIME: 14:34 Assessment/Plan VTE Prophylaxis Risk score (from Nsg)>0 risk: 3 SCD applied (from Nsg): Yes Pharmacological prophylaxis: other Lines/Catheters IV Catheter Type (from Nrsg): Peripheral IV Urinary Cath still in place: No Assessment/Plan Hospital Course S: Patient seen by urology team this morning. No fevers overnight, tolerating diet. Sugars slightly improved but still overall elevated. O: VS -see below PE: Gen: Conversive, no acute distress, eating food at bedside Eyes: PERRL no icterus HEENT: Moist mucous membranes, clear oropharynx Neck: Very wide circumference. No lymphadenopathy Card: Regular rate and rhythm, no murmurs Pulm: Clear to auscultation bilaterally Abd: Soft, nontender, nondistended. Ext: No cyanosis/clubbing/edema. Good peripheral pulses. : L testicle enlarged, very tender, swollen palpable epididymis. R testicle normal sized, not very tender. L sided scrotal redness and induration. Assessment/Plan: 73 yo man history of DM2, HTN, BPH, CKD presents with epidydimitis and (likely chronic) hydrocele. #Epidydimitis-slowly improving but still significant white blood cell count elevation. Still some swelling as well. Urine culture positive for Pseudomonas -For now continue IV Zosyn, continue elevation - Pain control with tylenol and norco. - Continue ambulation. -Follow further recognitions from urology consult #Diabetes: Sugars in the high 100 range. A1c is 7.5 -Continue sliding scale, increased dose of Lantus, and again increased dose of short acting insulin as well -For now holding home diabetic p.o. medications given his renal insufficiency #HTN: Stable - Continue home meds. #CKD- Cr 12/2017 was 1.65. Creatinine trending down, today 1.7. -Continue IV fluids and monitor BUN/creatinine levels -Holding ARB DVT: SCDs GI: None Result Diagram: 10/24/18 0710/24/18 0705 Results 24hrs Laboratory Tests Test 10/23/18 17:27 10/23/18 20:49 10/24/18 02:58 10/24/18 07:05 Bedside Glucose 187 198 190 White Blood Count 12.3 #H Red Blood Count 3.21 L Hemoglobin 9.0 L Hematocrit 29.5 L Mean Corpuscular Volume 91.9 Mean Corpuscular 28.0 L Hemoglobin Mean Corpuscular 30.5 L Hemoglobin Concent Red Cell Distribution 13.5 Width Platelet Count 227 Mean Platelet Volume 11.0 H Immature Granulocytes % 1.700 H Neutrophils % 79.7 H Lymphocytes % 12.3 L Monocytes % 4.3 Eosinophils % 1.6 Basophils % 0.4 Nucleated Red Blood 0.0 Cells % Immature Granulocytes # 0.210 H Neutrophils # 9.8 H Lymphocytes # 1.5 Monocytes # 0.5 Eosinophils # 0.2 Basophils # 0.1 Nucleated Red Blood 0.0 Cells # Sodium Level 137 Potassium Level 4.0 Chloride Level 108 Carbon Dioxide Level 22 Anion Gap 7 Blood Urea Nitrogen 47 H Creatinine 1.76 H Est Glomerular Filtrat Rate mL/min Glucose Level 204 Calcium Level 8.8 Phosphorus Level 4.4 Magnesium Level 2.1 Test 10/24/18 08:08 10/24/18 12:27 Bedside Glucose 214 258 H Exam/Review of Systems Exam Vitals Vital Signs Date Temp Pulse Resp B/P (MAP) Pulse Ox O2 O2 Flow FiO2 Time Delivery Rate 10/24/18 98.0 67 18 128/70 98 Room Air 14:29 (89) Intake and Output 10/23/18 10/23/18 10/24/18 1515:00 23:00 07:00 IntakeIntake Total 800 ml 540 ml 900 ml OutputOutput Total 400 ml 300 ml 1000 ml BalanceBalance 400 ml 240 ml -100 ml Results Results 24hrs Laboratory Tests Test 10/23/18 17:27 10/23/18 20:49 10/24/18 02:58 10/24/18 07:05 Bedside Glucose 187 198 190 White Blood Count 12.3 #H Red Blood Count 3.21 L Hemoglobin 9.0 L Hematocrit 29.5 L Mean Corpuscular Volume 91.9 Mean Corpuscular 28.0 L Hemoglobin Mean Corpuscular 30.5 L Hemoglobin Concent Red Cell Distribution 13.5 Width Platelet Count 227 Mean Platelet Volume 11.0 H Immature Granulocytes % 1.700 H Neutrophils % 79.7 H Lymphocytes % 12.3 L Monocytes % 4.3 Eosinophils % 1.6 Basophils % 0.4 Nucleated Red Blood 0.0 Cells % Immature Granulocytes # 0.210 H Neutrophils # 9.8 H Lymphocytes # 1.5 Monocytes # 0.5 Eosinophils # 0.2 Basophils # 0.1 Nucleated Red Blood 0.0 Cells # Sodium Level 137 Potassium Level 4.0 Chloride Level 108 Carbon Dioxide Level 22 Anion Gap 7 Blood Urea Nitrogen 47 H Creatinine 1.76 H Est Glomerular Filtrat Rate mL/min Glucose Level 204 Calcium Level 8.8 Phosphorus Level 4.4 Magnesium Level 2.1 Test 10/24/18 08:08 10/24/18 12:27 Bedside Glucose 214 258 H Medications Medication Current Medications IV Flush (NS 3 ml) 3 ml PER PROTOCOL IV ; Start 10/21/18 at 15:00 Acetaminophen (Tylenol Tab) 650 mg Q6H PRN PO .PAIN 1-3 OR TEMP; Start 10/21/18 at 15:00 Amlodipine Besylate (Norvasc) 5 mg QHS PO Last administered on 10/23/18 20:51; Admin Dose 5 MG; Start 10/21/18 at 21:00 Brimonidine/ Timolol (Combigan Oph) 1 drop BID BOTH EYES Last administered on 10/24/18 08:13; Admin Dose 1 DROP; Start 10/21/18 at 21:00 Gabapentin (Neurontin) 300 mg QAM PO Last administered on 10/24/18 08:13; Admin Dose 300 MG; Start 10/22/18 at 09:00 Gabapentin (Neurontin) 600 mg QHS PO Last administered on 10/23/18 20:51; Admin Dose 600 MG; Start 10/21/18 at 21:00 Olopatadine HCl (Pataday) 1 drop DAILY BOTH EYES Last administered on 10/24/18 08:13; Admin Dose 1 DROP; Start 10/22/18 at 09:00 Tamsulosin HCl (Flomax) 0.4 mg DAILY PO Last administered on 10/24/18 08:13; Admin Dose 0.4 MG; Start 10/22/18 at 09:00 Diagnostic Test (Pha) (Accu-Chek) 1 ea AC MEALS AND BEDTIME XX Last adm inistered on 10/23/18 17:42; Admin Dose 1 EA; Start 10/21/18 at 17:35 Acetaminophen/ Hydrocodone Bitart ([place] (5/325)) 1 tab Q4H PRN PO BREAKTHROUGH PAIN Last administered on 5/6/19at 22:54; Admin Dose 1 TAB; Start 10/21/18 at 15:00 Atorvastatin Calcium (Lipitor) 40 mg DAILY@21 PO Last administered on 10/23/18at 20:51; Admin Dose 40 MG; Start 10/21/18 at 21:00 Insulin Aspart (Novolog Insulin Pen) NOVOLOG *MODERATE* ALGORITHM WITH MEALS BEDTIME SC Last administered on 10/24/18at 12:30; Admin Dose 6 UNIT; Start 10/22/18 at 08:00 Miscellaneous Information 1 ea NOTE XX ; Start 10/21/18 at 22:00 Glucose (Glutose) 15 gm Q15M PRN PO DECREASED GLUCOSE; Start 10/21/18 at 22:00 Glucose (Glutose) 22.5 gm Q15M PRN PO DECREASED GLUCOSE; Start 10/21/18 at 22:00 Dextrose (D50w Syringe) 25 ml Q15M PRN IV DECREASED GLUCOSE; Start 10/21/18 at 22:00 Dextrose (D50w Syringe) 50 ml Q15M PRN IV DECREASED GLUCOSE; Start 10/21/18 at 22:00 Glucagon (Glucagen) 1 mg Q15M PRN IM DECREASED GLUCOSE; Start 10/21/18 at 22:00 Glucose (Glutose) 15 gm Q15M PRN BUCCAL DECREASED GLUCOSE; Start 10/21/18 at 22:00 Piperacillin Sod/ Tazobactam Sod 100 ml @ 200 mls/hr Q8 IVPB Last administered on 10/24/18at 13:43; Admin Dose 200 MLS/HR; Start 10/23/18 at 18:00 Sodium Chloride 1,000 ml @ 100 mls/hr Q10H IV Last administered on 10/24/18at 06:09; Admin Dose 100 MLS/HR; Start 10/23/18 at 18:00 Diagnostic Test (Pha) (Accu-Chek) 1 ea 02 XX ; Start 10/24/18 at 02:00 Fluticasone Propionate (Flonase 0.05% Nasal) 1 spray BID NASAL Last administered on 10/24/18at 08:14; Admin Dose 1 SPRAY; Start 10/23/18 at 21:00 Insulin Aspart (Novolog Insulin Pen) 11 unit WITH MEALS SC ; Start 10/24/18 at 17:35; Status UNV Insulin Glargine (Lantus) 30 units DAILY@2000 SC ; Start 10/24/18 at 20:00; Status UNV SHEILA CHIN October 24, 2018 14:35
[2018-10-24 19:45] VITALS: BP 141/68; PULSE 67; RESP 18
[2018-10-24] MEDS ORDERED: INSULIN GLARGINE [LANTus] (100 UNITS/ML) SYG SC SCH (20:00)
[2018-10-24] MEDS: ATORVASTATIN 40 MG TAB PO SCH (20:51)
[2018-10-24] MEDS: AMLODIPINE 5 MG TAB PO SCH (20:52)
[2018-10-25] MEDS: ACCU-CHEK XX SCH ×4 (02:00→17:35)
[2018-10-25 02:03] VITALS: BP 126/68; PULSE 66; RESP 18
[2018-10-25] MEDS: SOD CHLORIDE 0.9% 1,000 ML IV SCH ×2 (03:43→10:00)
[2018-10-25] MEDS: PIPER-TAZO 3.375 GM IV (PMX) 100 ML IVPB SCH ×2 (06:07→14:45)
[2018-10-25 07:30] VITALS: BP 135/65; PULSE 71; RESP 18
[2018-10-25] MEDS: TAMSULOSIN (SR) 0.4 MG CAP PO SCH (08:22)
[2018-10-25] MEDS: GABAPENTIN 300 MG CAP PO SCH (08:22)
[2018-10-25] MEDS: BRIMONIDINE 0.2%-TIMOLOL 0.5% 5ML OPH BOTH EYES SCH (08:23)
[2018-10-25] MEDS: FLUTICASONE 0.05% 16 GM NAS SPRAY NASAL SCH (08:23)
[2018-10-25] MEDS: OLOPATADINE 0.2% (ONCE A DAY) OPHTH DROP 2.5 ML BOTH EYES SCH (08:23)
[2018-10-25] MEDS: INSULIN ASPART [NOVOLOG] 3 ML PEN SC SCH ×6 (08:24→17:36)
--- NOTE | 2018-10-25 12:10 | PDOCDIS ---
Discharge Instructions CONDITION [id number] Patient Condition: [id number] Stable HOME CARE INSTRUCTIONS: [id number] Diet Instructions: [id number] Low Fat /Cholesterol ACTIVITY: [id number] Activity Restrictions: [id number] Slowly Increase Activity Rest between Activity Avoid heavy lifting FOLLOW UP/APPOINTMENTS Follow-up Plan Please take your medications as prescribed. Please do not take your home losartan medication for the next 4 to 5 days, after that you can resume that particular medicine. SHEILA CHIN October 25, 2018 12:10
[2018-10-25] MEDS ORDERED: LEVO750T25 PO (12:14)
--- NOTE | 2018-10-25 12:18 | DS ---
Date/Time of Note Date/Time of Note DATE: 10/25/18 TIME: 12:15 Discharge Summary Admission/Discharge Info Admit Date/Time October 21, 2018 at 11:32 Discharge Date/Time Discharge Diagnosis #Epidydimitis-slowly improving, urine culture positive for Pseudomonas, sensiti ve to all antibiotics listed #Diabetes: A1c is 7.5 #HTN: Stable #CKD-slowly resolving, holding home ARB Patient Condition: Stable Hx of Present Illness 73-year-old man with history of HTN, HLD, DM2, BPH, and CKD who presents with testicular pain. Symptoms have been gradually progressive for about two weeks. Reports testicular pain, aching, positional, worse when sitting on them or applying any pressure. He denies dysuria, foul smelling urine, subjective fever or chills at home. He had an appointment with his urologist, Dr. Wilkinson at [facility] yesterday; but his maintenance equipment operator could not bring him to the appointment. He lives at home with a maintenance equipment operator, has a hospital bed (?), and ambulates with a walker. The morning of admission he woke up and tried to stand but doing so caused severe testicular pain. So he had his maintenance equipment operator call him an ambulance to the ED. In the ED he had elevated temp to 100.2. Otherwise vitals unremarkable. WBC elevated to 26.3 and Cr was 2.5 with very fluctuating baseline. Otherwise labs unremarkable. Testicular US shows bilateral hydrocele and bilateral epididym itis. Hospital Course Patient was admitted and started on p.o. antibiotics. However his white blood cell count was still quite elevated over the next 48 to 72 hours while he was here in the hospital. Patient clinically was responding well however. This was switched to IV antibiotics afterwards and his white blood cell count dramatically improved after that. No fevers. Urine culture did show positive Pseudomonas sensitive to most antibiotics listed. Patient also found with acute on chronic renal insufficiency, which was slowly improving by the time of discharge and his ARB medicine was held from home to help improve this. He was also seen by urology team who recommended continue management with IV antibiotics and elevation for testicular swelling, which also decreased by the time of discharge. A1c is found to be 7.5. Sugars were improved after insulin medications were adjusted to help better control his blood sugars. Patient was able to ambulate, tolerated p.o. diet. White blood cell count was stable on day of discharge. He will be discharged home today improved condition with 7 more days of p.o. antibiotics. See below for full list of discharge medications. Home Meds Active Scripts Levofloxacin* (Levaquin*) 750 Mg Tablet, 750 MG PO DAILY for 7 Days, #7 TAB Prov:SHEILA CHIN. 10/25/18 Reported Medications Pioglitazone Hcl* (Actos*) 15 Mg Tablet, 15 MG PO DAILY, #30 TAB 10/21/18 Tamsulosin Hcl* (Flomax*) 0.4 Mg Cap.er.24h, 0.4 MG PO DAILY, CAP 10/21/18 Olopatadine* (Pataday*) 0.2% - 2.5 Ml Drops, 1 DROP BOTH EYES DAILY, EA 10/21/18 Brimonidine/Timolol* (Combigan*) 5 Ml Drops, 1 DROP BOTH EYES BID, BOTTLE 10/21/18 Rosuvastatin Calcium* (Crestor*) 10 Mg Tablet, 10 MG PO QHS, #30 TAB 10/21/18 Fluticasone Propionate* (Fluticasone Propionate* Nasal) 50 Mcg/[place] - 16 Gm [place].susp, 1 SPRAY NASAL DAILY, #1 BOTTLE TO EACH NOSTRIL 10/21/18 Amlodipine Besylate* (Norvasc*) 5 Mg Tablet, 5 MG PO QHS, TAB 10/21/18 Gabapentin* (Gabapentin*) 300 Mg Capsule, 600 MG PO QHS, #180 CAP 10/21/18 Gabapentin* (Gabapentin*) 300 Mg Capsule, 300 MG PO QAM, #60 CAP 10/21/18 Sitagliptin Phos/Metformin HCl (Janumet 50-1,000 mg Tablet) 1 Each Tablet, 1 EACH PO BID, TAB 10/21/18 Discontinued Reported Medications Losartan Potassium* (Losartan Potassium*) 50 Mg Tablet, 50 MG PO DAILY, TAB 10/21/18 Pioglitazone Hcl* (Actos*) 15 Mg Tablet, 15 MG PO DAILY, #30 TAB 12/27/17 Empagliflozin (Jardiance) 25 Mg Tablet, 25 MG PO WITH MEALS, TAB 12/27/17 Amlodipine Besylate* (Norvasc*) 5 Mg Tablet, 5 MG PO DAILY, TAB 12/27/17 Sitagliptin Phos/Metformin HCl (Janumet 50-1,000 mg Tablet) 1 Each Tablet, 2 EACH PO WITH DINNER, TAB 12/27/17 Rosuvastatin Calcium* (Crestor*) 10 Mg Tablet, 10 MG PO QHS, #30 TAB 12/27/17 Discontinued Scripts Tamsulosin Hcl* (Flomax*) 0.4 Mg Cap.er.24h, 0.8 MG PO HS for 30 Days, #60 CAP Prov:BRITTANI BELL MD 12/30/17 Trimethoprim-Sulfamethoxazole* (Bactrim*) 400-80 Mg Tab, 1 TAB PO BID for 10 Days, #20 TAB Prov:BRITTANI BELL MD 12/30/17 Follow-up Plan Please take your medications as prescribed. Please do not take your home losartan medication for the next 4 to 5 days, after that you can resume that particular medicine. Primary Care Provider Care Physician No Primary Time spent on discharge: > 30 minutes Pending Labs Laboratory Tests Test 10/24/18 12:27 10/24/18 17:20 10/24/18 20:47 10/25/18 06:37 Bedside 258 123 128 Glucose mg/dL (70-220) mg/dL (70-220) mg/dL (70-220) White Blood 8.8 Count 10^3/ul (4.8-1 0.8) Red Blood 3.23 Count 10^6/ul (4.70- 6.10) Hemoglobin 9.1 g/dl (14.0-18. 0) Hematocrit 29.4 % (42.0-52.0) Mean 91.0 Corpuscular fl (82.0-101.0 Volume ) Mean 28.2 Corpuscular pg (29.0-33.0) Hemoglobin Mean 31.0 Corpuscular g/dl (32.0-37. Hemoglobin Conc 0) ent Red Cell 13.6 Distribution % (11.5-14.5) Width Platelet Count 264 10^3/UL (140-4 15) Mean Platelet 10.8 Volume fl (7.4-10.4) Immature 4.000 Granulocytes % % (0.001-0.429 ) Neutrophils % 69.1 % (39.0-77.0) Lymphocytes % 16.7 % (15.0-51.0) Monocytes % 5.9 % (0.0-11.0) Eosinophils % 3.5 % (0.0-7.0) Basophils % 0.8 % (0.0-2.0) Nucleated Red 0.0 Blood Cells % /100WBC (0.0-0 .0) Immature 0.350 Granulocytes # 10^3/ul (0.0-0 .031) Neutrophils # 6.1 10^3/ul (1.6-7 .5) Lymphocytes # 1.5 10^3/ul (0.8-2 .9) Monocytes # 0.5 10^3/ul (0.3-0 .9) Eosinophils # 0.3 10^3/ul (0.0-0 .5) Basophils # 0.1 10^3/ul (0.0-0 .1) Nucleated Red 0.0 Blood Cells # 10^3/ul (0.0-0 .0) Sodium Level 142 mmol/L (135-14 4) Potassium 4.4 Level mmol/L (3.5-5. 1) Chloride Level 113 mmol/L (97-110 ) Carbon Dioxide 22 Level mmol/L (21-31) Anion Gap 7 (5-13) Blood Urea 43 Nitrogen mg/dl (7-20) Creatinine 2.04 mg/dl (0.61-1. 24) Est Glomerular mL/min (>60) Filtrat Rate mL/min Glucose Level 177 mg/dl (70-220) Calcium Level 8.7 mg/dl (8.4-10. 2) Test 10/25/18 08:03 10/25/18 12:05 Bedside 171 132 Glucose mg/dL (70-220) mg/dL (70-220) SHEILA CHIN October 25, 2018 12:18
[2018-10-25] MEDS ORDERED: SOD CHLORIDE 0.9% 250 ML IV ONE (12:30)
[2018-10-25 14:20] VITALS: BP 168/77; PULSE 81; RESP 18
== END 2018-10-25 19:12 | disposition home or self-care (01) | DRG 728 ==
LOC: E/R 08:46 → PP2 11:32
PROVIDERS: ADMIT Internal Medicine; ATTEND Hospitalist
DX: N45.1 Epididymitis (principal); N39.0 Urinary tract infection, site not specified; N17.9 Acute kidney failure, unspecified; E87.2 Acidosis; I12.9 Hypertensive chronic kidney disease with stage 1 through stage 4 chronic kidney disease, or unspecified chronic kidney disease; N18.9 Chronic kidney disease, unspecified; E11.65 Type 2 diabetes mellitus with hyperglycemia; E78.5 Hyperlipidemia, unspecified; N40.0 Benign prostatic hyperplasia without lower urinary tract symptoms; Z87.891 Personal history of nicotine dependence
CPT/HCPCS: 36415; 71045; 76870; 80048; 80053; 81001; 82962; 83036; 83605; 83735; 84100; 84484; 85025; 85610; 85730; 87086; 93005; 96361; 96374; 96375; 97116; 97161; 97530; J1815; J1885; J1956; J2543; J7030; J7040

== ENCOUNTER 2019-03-05 10:49 | Emergency (ER) | payer OTHER ==
[~2019-03-05] VITALS: Ht 167.6 cm; Wt 91.6 kg
[~2019-03-05 10:49] MED LIST changes: -BACTRIM PO; +BIOT1CAP3 PO; +CALC1TAB79 PO; +COMBIG5 BOTH EYES; +CYAN500T55 PO; -EMPA25TA PO; +FLUT16SP17 NASAL; +FURO-110 PO; +GABA300C16 PO; +GLIM1TAB3 PO; +LEVO750T25 PO; +LOSA100T15 PO; +OLOP2.5D BOTH EYES; +RANI150T5 PO; +SITA1TBM4 PO; +TRAM50TA PO; +VITA-110 PO
[2019-03-05 10:58] VITALS: PULSE 68; Ht 167.6 cm; Wt 91.6 kg
[2019-03-05 13:05] VITALS: BP 155/72; RESP 18
== END 2019-03-05 13:00 | disposition home or self-care (01) ==
LOC: E/R 10:49
DX: S90.821A Blister (nonthermal), right foot, initial encounter (principal); E11.9 Type 2 diabetes mellitus without complications; M17.11 Unilateral primary osteoarthritis, right knee; I10 Essential (primary) hypertension; X58.XXXA Exposure to other specified factors, initial encounter; Y92.9 Unspecified place or not applicable; Z79.84 Long term (current) use of oral hypoglycemic drugs; Z87.891 Personal history of nicotine dependence
CPT/HCPCS: 73562; 73630